=== PATIENT | male | born 1980 | race Caucasian/White ===

== ENCOUNTER 2018-02-20 16:00 | Emergency (ER) | payer MEDICAID ==
[~2018-02-20] VITALS: Ht 182.9 cm; Wt 103.8 kg
[2018-02-20 16:04] VITALS: BP 127/73
== END 2018-02-20 17:09 | disposition home or self-care (01) ==
LOC: ED 16:20
DX: J20.8 Acute bronchitis due to other specified organisms (principal); B97.89 Other viral agents as the cause of diseases classified elsewhere; J00 Acute nasopharyngitis [common cold]; F17.200 Nicotine dependence, unspecified, uncomplicated
CPT/HCPCS: 71046; 99284

== ENCOUNTER 2018-04-23 05:02 | Emergency (ER) | payer MEDICAID ==
[~2018-04-23] VITALS: Ht 180.3 cm; Wt 103.5 kg
[2018-04-23 05:04] VITALS: BP 142/91
[2018-04-23] MEDS ORDERED: IBUP-1222 PO (05:16)
[2018-04-23] MEDS ORDERED: AMOXICILLIN 500 MG CAPSULE PO ONE (05:30)
== END 2018-04-23 06:24 ==
LOC: ED 05:18
DX: K02.9 Dental caries, unspecified (principal); K04.7 Periapical abscess without sinus
CPT/HCPCS: 99283